=== PATIENT | female | born 1985 | race Hispanic/Latino ===

== ENCOUNTER 2021-01-14 19:19 | Inpatient (IN) | payer OTHER ==
[2021-01-14] MEDS ORDERED: CARBOPROST TROME 250 MCG/ML IM PRN (19:43)
[2021-01-14] MEDS ORDERED: METHYLERGONOVINE 0.2MG/ML AMP IM PRN (19:43)
[2021-01-14] MEDS ORDERED: PROMETHAZINE INJ 25 MG/ML AMP IM PRN (19:43)
[2021-01-14] MEDS ORDERED: Ringers Lactate 1,000 ML IV PRN (19:43)
[2021-01-14] MEDS ORDERED: Ringers Lactate 1,000 ML IV SCH (20:00)
[2021-01-14] MEDS ORDERED: OXYTOCIN/LR 20 UNIT/1,000 ML BAG IV SCH (20:00)
[2021-01-14 20:52] LABS: Absolute Lymphocytes (CBC) 1.7 K/uL (0.7-4.9); Basophils % 0.4 % (0-1.3); Hematocrit 34.6 % (36.0-45.0); Lymphocytes % 14.1 % (15.3-44.8); MPV 10.6 fL (7.6-11.3); RBC Red Blood Cell Count 3.85 M/uL (3.86-4.86)
[2021-01-14 20:58] LABS: Urine Appearance CLOUDY (Clear); Urine Blood NEGATIVE (Negative); Urine Color DK YELLOW (Yellow); Urine Glucose NEGATIVE (Negative); Urine Protein TRACE (Negative); Urine Specific Gravity >=1.030 (1.005-1.030)
[2021-01-14 21:00] VITALS: BMI 34.2
[2021-01-14 21:08] LABS: Urine Bilirubin NEGATIVE (Negative); Urine Microscopic Reflex ORDER UMIC
[2021-01-14 21:27] LABS: Urine Bacteria 20-50 /HPF (<20); Urine Mucus 1+ /HPF (NONE SEEN); Urine RBC <5 /HPF (NONE SEEN)
[2021-01-15] MEDS: BUTORPHANOL 1 MG/ML INJ IV PRN ×2 (02:21→05:51)
[2021-01-15] MEDS ORDERED: FENTANYL/BUPIVACAINE/NS/PF 200 MCG/100 ML BAG EP PRN (06:52)
[2021-01-15] MEDS ORDERED: FENTANYL CITR 100 MCG/2 ML IV ONE (06:53)
[2021-01-15] MEDS ORDERED: BUPIVACAINE 0.25% PF 10 ML VIAL IV PRN (06:53)
[2021-01-15] MEDS ORDERED: ROPIVACAINE HCL 0.2% 20ML AMP EP ONE (06:57)
[2021-01-15] MEDS ORDERED: 0.2% ROPIVACAINE (200 MG/100 ML) BAG EP ONE (06:57)
[2021-01-15] MEDS ORDERED: LIDOCAINE 1% MPF 30 ML VIAL ONE (07:47)
[2021-01-15] MEDS ORDERED: METHYLERGONOVINE 0.2MG/ML AMP IM ONE (07:47)
[2021-01-15] MEDS ORDERED: DIPHENHYDRAMINE 25 MG TAB/CAP PO PRN (09:48)
[2021-01-15] MEDS ORDERED: IBUPROFEN 200 MG TAB PO PRN (09:48)
[2021-01-15] MEDS ORDERED: DOCUSATE NA/SENNA CONC 1 TAB PO PRN (09:48)
[2021-01-15] MEDS ORDERED: ACETAMINOPHEN 500 MG TAB PO PRN (09:48)
[2021-01-15] MEDS ORDERED: Oxycodone HCl/Acetaminophen 1 TAB TAB PO PRN ×2 (09:48)
[2021-01-15] MEDS ORDERED: BISACODYL 10 MG RECTAL SUPP PR PRN (09:48)
[2021-01-15] MEDS ORDERED: OXYTOCIN/LR 20 UNIT/1,000 ML BAG IV SCH (10:00)
[2021-01-15] MEDS ORDERED: INFLUENZA VACCINE (for 6+ mo) 0.5 ML DOSE IMVAC ONE (12:00)
[2021-01-15] MEDS ORDERED: Ringers Lactate 2,000 ML IV ONE (15:43)
[2021-01-15 23:11] LABS: RPR (Rapid Plasma Reagin) NON-REACT (NON-REACT)
[2021-01-16 08:10] VITALS: BP 129/70; TEMP 98.4
[2021-01-16] MEDS ORDERED: INFLUENZA VACCINE (for 6+ mo) 0.5 ML DOSE IMVAC ONE (09:01)
--- NOTE | 2021-01-17 12:53 | DS ---
Date of Discharge: 01/16/2021 35-year-old 2, para 0, at 37 weeks with rupture of membranes, 37 weeks 1 day at time of delraimundo schulte, delivered of a 6 pounds 13 ounces male infant with 's 9 and 9 with loose nuchal cord x1. E pidural anesthesia. Very small first-degree laceration, repaired with 2-0 chromic. Delivery of the placenta which inspected and noted to be intact and normal. Less than 200 mL blood loss. Rh positiv e, immune to rubella, negative strep, negative COVID. At the time of delivery, local infiltration was also used but was not necessary, as patient was still numb from the epidural. ; afebrile, ambulating, and voiding. Lochia is normal. Flu shot has been offered and COVID immunization discus sed. She has had a Tdap shot during the . Requests no analgesics on dismissal. Final Diagnoses: Intrauterine gestation, 37 weeks and 1 day at the time of delivery. Epidural anest hesia. Immunizations offered. JERAMIE/FRACISCOL Voice ID: [id number] Report ID: [id number]
--- NOTE | 2021-01-17 12:53 | PREOPHP ---
Date of Admission: 01/14/2021 History Of Present Illness: 35-year-old 2, para 0 at 37 weeks . She had rupture o f membranes around 0630 in the afternoon, came to Labor and Delivery, indeed was positive for membran e rupture, was only 1 cm at that point. Brendan irregularly and started on Pitocin. Family History: Grandfather with heart attack. Father with diabetes. Maternal aunt with leukemia. Medical History: She has had no serious medical illnesses. LASIK surgery on her eyes and cryotherap y for cervical dysplasia. Social History: Does not smoke. Physical Examination: HEENT: Clear. Pupils equal, round, reactive to light and accommodation. Conjunctivae well perfused. No oral, lingual, or buccal lesions. Chest: Lungs clear. Heart: Without murmurs, thrills, heaves, or rubs. Breasts: Not examined on this visit. Abdomen: Term size. Extremities: Clear without edema , cyanosis, or clubbing. Assessment And Plan: The patient is now 6.5 to 7 cm, 100% effaced, 0 station. Vertex. She is reque sting epidural. We will call the anesthesia group and start hydrating, although she may progress too rapidly, we will see. She has had 2 doses of Stadol. She is a little lethargic. The babies also l ost some variability, but prior to this Stadol, variability was quite good. We will make plans for d elivery, which I think will occur relatively soon. JERAMIE/FALGUNI Voice ID: [id number]
--- NOTE | 2021-01-17 12:53 | OP ---
Surgeon: Quinn Potter MD A 35-year-old 2, para 0, 37 weeks when she experienced spontaneous rupture of membranes, nevaeh r fluid. Came to Labor and Delivery. She was started on Pitocin augmentation and delivered at 37 we eks and 1 day of a 6 pounds 13 ounce male infant, Apgars 9 and 9. Second stage of approximately 30 m inutes. Epidural anesthesia. Local infiltration, although I do not think it was necessary as she di d not feel the injection. For repair of first-degree laceration, she required about 6 stitches 2-0 c hromic in a running locked. Baby had a nuchal cord x1 loosely. Schultze delivery of the placenta, w as inspected, noted to be intact and normal. Less than 200 cc blood loss. Rh positive, immune rubel la, negative strep, negative COVID. Tolerated all procedures well. Final Diagnoses: Intrauterine gestation, 37 weeks, spontaneous rupture of membranes, vaginal deliver y at 37 weeks and 1 day. Epidural anesthesia. Nuchal cord x1 loosely. JERAMIE/MODL Voice ID: [id number] Report ID: [id number]
[2021-01-20 15:49] LABS: HBsAG Nonreactive (Nonreactive)
== END 2021-01-16 12:25 | disposition home or self-care (01) | DRG 807 ==
LOC: L&D 19:19 → 2ND-WC 19:42
PROVIDERS: ADMIT Specialist; ATTEND Specialist
PROC: 10E0XZZ Delivery of Products of Conception, External Approach (ICD-10-PCS; principal; 2021-01-15)
PROC: 0HQ9XZZ Repair Perineum Skin, External Approach (ICD-10-PCS; 2021-01-15)
DX: O70.0 First degree perineal laceration during delivery (principal); Z37.0 Single live birth; Z3A.37 37 weeks gestation of pregnancy; Z23 Encounter for immunization; Z20.822 Contact with and (suspected) exposure to COVID-19
CPT/HCPCS: 36415; 81003; 81015; 85025; 86592; 86850; 86900; 86901; 87086; 87088; 87340; 90471; J0595; J2210; J2550; J2590; J2795; J3010; J7120; Q2035; U0003